=== PATIENT | female | born 1970 | race Caucasian/White ===

== ENCOUNTER → 2016-10-28 | Outpatient (CLI) | payer OTHER ==
[~2016-10-28] MED LIST: ALLDSR/24 PO; BCPILLS PO; DRV100 PO; EFFSR150 PO; FLX10 PO
--- NOTE | 2016-10-29 12:46 | MAMMOGRAPHY REPORT ---
BILATERAL DIGITAL SCREENING MAMMOGRAM TOMOSYNTHESIS WITH CAD: 10/28/2016 CLINICAL HISTORY: Routine screening. However, at the time of this exam the patient reported a recen t episode of brownish left nipple discharge. TECHNIQUE: Breast tomosynthesis in addition to standard 2D mammography was performed. Current study was also evaluated with a Computer Aided Detection (CAD) system. COMPARISON: Comparison is made to exams dated: 06/13/2014 mammogram, 05/23/2005 mammogram, 01/08/2015 mammogram, 01/08/2015 ultrasound, 04/16/2004 mammogram, and 06/13/2014 ultrasound - [facility]. BREAST COMPOSITION: There are scattered areas of fibroglandular density in both breasts. FINDINGS: There is evidence of prior reduction mammoplasty. There are diffuse bilateral benign-appe aring round and punctate microcalcifications. No new suspicious mass, architectural distortion or cl uster of microcalcifications is seen. IMPRESSION: ACR BI-RADS CATEGORY 0: INCOMPLETE EVALUATION: NEED ADDITIONAL IMAGING EVALUATION 1. Stable bilateral mammograms, without mammographic evidence of malignancy. 2. However, the patient reported a recent episode of brownish left nipple discharge. This finding needs further workup with clinical correlation for possible cytologic analysis as well as spot magni fication views of the subareolar left breast with targeted ultrasound. The patient will be called to schedule an appointment. Approximately 10% of breast cancers are not detected with mammography. A negative mammographic repor t should not delay biopsy if a clinically suggestive mass is present. Gricelda Beth M.D. ay/:10/28/2016 17:02:04 Fare Enforcement Officer: Marielos MCDONALD(Anjali)(M), [facility] letter sent: Addl Imaging 0 BI-RADS Code: ACR BI-RADS Category 0: Incomplete Evaluation: Need Additional Imaging Evaluation
== END | disposition home or self-care (01) ==
LOC: C.MAMM 07:16
PROVIDERS: ATTEND Obstetrics & Gynecology
DX: Z12.31 Encounter for screening mammogram for malignant neoplasm of breast (principal); N64.52 Nipple discharge

== ENCOUNTER → 2016-10-31 | Outpatient (CLI) | payer OTHER ==
--- NOTE | 2016-10-31 15:19 | MAMMOGRAPHY REPORT ---
UNILATERAL LEFT DIGITAL DIAGNOSTIC MAMMOGRAM AND TARGETED LEFT ULTRASOUND: 10/31/2016 CLINICAL HISTORY: The patient reports a history of bilateral yellowwhite nipple discharge since her 20s, only noted upon expression. She had one episode of rust-colored left nipple discharge, which was only noted upon expression and was not spontaneous. She denies any nipple changes or palpable l umps. TECHNIQUE: Spot magnification left CC and ML views were obtained. COMPARISON: Comparison is made to exams dated: 10/28/2016 mammogram, 06/13/2014 mammogram, 05/23/2005 mammogram, and 04/16/2004 mammogram - [facility]. BREAST COMPOSITION: There are scattered areas of fibroglandular density in the left breast. FINDINGS: Spot magnification views of the subareolar region demonstrate no suspicious masses, calcif ications, or areas of architectural distortion. Scattered benign-appearing calcifications are stabl e. Targeted ultrasound was performed of the left subareolar breast. No intraductal mass or other suspi cious sonographic abnormality is evident. IMPRESSION: ACR BI-RADS CATEGORY 2: BENIGN, TARGETED ULTRASOUND ACR BI-RADS CATEGORY 2: BENIGN No intraductal mass or other suspicious mammographic or sonographic abnormality is noted in the left subareolar region. There is no mammographic or targeted sonographic evidence of malignancy. Recom mend clinical follow-up for left nipple discharge; if the patient has any further episodes of possib ly bloody discharge, consider obtaining a sample of the discharge for cytologic analysis and possibl e surgical consultation and/or MRI. Also recommend routine bilateral mammograms in one year. The patient has been verbally notified of the results. Approximately 10% of breast cancers are not detected with mammography. A negative mammographic repor t should not delay biopsy if a clinically suggestive mass is present. Sintia Ramires M.D. /:10/31/2016 14:37:04 Lease Administrator: Nicolle MCDONALD(R)(M), [facility] letter sent: Normal 1/2 BI-RADS Code: ACR BI-RADS Category 2: Benign Ultrasound BI-RADS: ACR BI-RADS Category 2: Benign
== END | disposition home or self-care (01) ==
LOC: C.MAMM 13:13
PROVIDERS: ATTEND Obstetrics & Gynecology
DX: N64.52 Nipple discharge (principal)

== ENCOUNTER → 2017-10-01 | Outpatient (CLI) | payer OTHER | END | disposition home or self-care (01) | LOC: C.PAPS 11:44 | PROVIDERS: ATTEND Physician Assistant | DX: Z12.4 Encounter for screening for malignant neoplasm of cervix (principal) ==